=== PATIENT | male | born 1945 | race Caucasian/White ===

== ENCOUNTER 2022-10-25 01:24 | Day surgery (SDC) | payer MEDICARE, OTHER, SELFPAY ==
[2022-10-13 14:52] VITALS: BMI 27.3
--- NOTE | 2022-10-22 15:42 | PM.HPGS ---
History of Present Illness History of Present Illness Consent: Risks, benefits, and alternatives have been discussed and questions answered. Patient agrees to proceed with procedure. Chief complaint: hx of colon polyps Narrative: Jaylon Jean-Baptiste is a 76 year old male With a history of polyps. 2 polyps were removed at the time of his last colonoscopy 5 years ago. Review of Systems Review of Systems: All systems reviewed & are unremarkable except as noted in HPI and below PMFSH Family History Family History Sibling Family history of hypercholesterolemia Social History Social History Smoking status: Former smoker Tobacco type: cigarettes Smoking end date: 03/28/75 Substance use type: does not use Living arrangements: with family Spiritual care concerns: No Meds Home Medications and Allergies Home Medications Medication Instructions Recorded Confirmed Type dutasteride 0.5 mg capsule 0.5 mg PO DAILY 10/25/22 10/25/22 History Allergies Allergy/AdvReac Type Severity Reaction Status Date / Time No Known Allergies Allergy Unverified 10/25/22 09:50 Exam Const: General: alert Orientation/consciousness: patient oriented x3 Resp: Auscultation: clear to auscultation bilaterally Cardio: Rhythm: regular rhythm GI: GI Palp: Yes Soft to palpation and No Tenderness to palpation present (GI) Neuro: General: patient oriented x3 Assessment and Plan Assessment and plan (1) Colon cancer screening: Code(s): Z12.11 - Encounter for screening for malignant neoplasm of colon Status: Acute Assessment and Plan: Colonoscopy with possible biopsy or polypectomy or cautery or injection of substances.
[2022-10-25 09:51] VITALS: BP 112/57; PULSE 61; RESP 18; TEMP 36.2; O2SAT 98
[2022-10-25] MEDS: LACTATED RINGERS 1,000 ML 150 ML IV CONT (09:54)
--- NOTE | 2022-10-25 10:01 | WPDANESEPPF ---
Anes - Initial Pre Proc Eval Procedure: Operation Date: 10/25/22 11:00 Proposed Procedures p Colonoscopy - Jackson Jeffries MD Date/Time: 10/25/22 10:01 Surgeon: Jackson Jeffries MD Pre Op Diagnosis: hx of colon polyps Patient Data Age: 76 Gender: M Height: 1.75 m Weight: 81.1 kg Last Vital Signs Temp 97.1 F L 10/25/22 09:51 Pulse 61 10/25/22 09:51 Resp 18 10/25/22 09:51 BP 112/57 L 10/25/22 09:51 Pulse Ox 98 10/25/22 09:51 O2 Del Method Room Air 10/25/22 09:51 Allergies Allergy/AdvReac Type Severity Reaction Status Date / Time No Known Allergies Allergy Unverified 10/25/22 09:50 Home Medications Medication Instructions Recorded Confirmed Type dutasteride 0.5 mg capsule 0.5 mg PO DAILY 10/25/22 10/25/22 History Patient hx anesthesia problems: none Family hx anesthesia problems: none Results Review: All pre-operative results and documents have been reviewed as part of the pre-operative evaluation. [facility] Family History Family History Sibling Family history of hypercholesterolemia Social History Social History Smoking status: Former smoker Tobacco type: cigarettes Smoking end date: 03/28/75 Substance use type: does not use Living arrangements: with family Spiritual care concerns: No Anes - Eval Final PreProcedure Day of Procedure 10/25/22 10:01 Patient weight: normal Heart: regular rate and rhythm Lungs: clear to auscultation Airway: Mallampati scale class II Neurological: alert and oriented Last oral intake: >/= 8 hours ASA classification: II Emergent: no Anesthetic plan: proceed Anesthesia type and monitoring: general GIVS and standard monitoring Results Review: All pre-operative results and documents have been reviewed as part of the pre-operative evaluation. Informed Consent: The patient's anesthetic plan and its attendant risks and benefits were discussed with the patient/family/POA. Questions were solicited and answers provided to the satisfaction of the patient/family/POA.
[2022-10-25 10:33] VITALS: BP 95/57; PULSE 59; RESP 25; O2SAT 96
[2022-10-25 10:43] VITALS: BP 108/66; PULSE 53; RESP 14; O2SAT 98
== END 2022-10-25 11:10 | disposition home or self-care (01) ==
PROVIDERS: Visit Provider Internal Medicine Gastroenterology
PROC: 0DJD8ZZ Inspection of Lower Intestinal Tract, Via Natural or Artificial Opening Endoscopic (ICD-10-PCS; CPT 45378; principal; 2022-10-25 11:00)
DX: Z12.11 Encounter for screening for malignant neoplasm of colon (principal); D12.8 Benign neoplasm of rectum; K57.30 Diverticulosis of large intestine without perforation or abscess without bleeding; Z87.891 Personal history of nicotine dependence
CPT/HCPCS: 45385; 88305; J2704; J7120

== ENCOUNTER → 2023-02-25 10:50 | Outpatient (CLI) | payer MEDICARE, OTHER, SELFPAY ==
--- NOTE | ~2023-02-25 | US_ITS ---
US scrotum doppler INDICATION: Swollen right testicle TECHNIQUE: Testicular sonogram utilizing grayscale and color Doppler FINDINGS: The testes are normal in size and appearance. No focal lesions are seen. The right testes measures 4.5 x 3 x 2.8 cm centimeters, and the left testis measures 4.2 x 2.4 x 3.4 cm cm. There is n ormal vascular flow to both testes. There is a 6 mm right epididymal cysts. There is a large right and small left hydroceles. IMPRESSION: 1. Bilateral hydroceles, right greater than left. Reviewed, dictated and finalized at location B. [employer]
== END ==
PROVIDERS: PCP Family Medicine; Visit Provider Family Medicine
DX: N50.89 Other specified disorders of the male genital organs (principal); N43.3 Hydrocele, unspecified
CPT/HCPCS: 76870; 93976

== ENCOUNTER 2023-11-04 13:44 | Outpatient (CLI) | payer MEDICARE, OTHER, SELFPAY ==
--- NOTE | ~2023-11-04 | XR_ITS ---
XR knee RT 3V 11/04/2023 14:05 Indication: Right knee pain Procedure: 3 views right knee Comparison: No prior studies for comparison. Findings: There is moderate-severe tricompartment osteoarthritis, most advanced in the medial compart ment. No fracture or traumatic malalignment. No significant joint effusion. Impression: 1: Moderate-severe tricompartment osteoarthritis of the right knee. Reviewed, dictated and finalized at location B. Impression: 1: Moderate-severe tricompartment osteoarthritis of the right knee.
--- NOTE | ~2023-11-04 | US_ITS ---
EXAMINATION:US venous doppler LE RT INDICATION:Right lower extremity edema TECHNIQUE: Multiple grayscale, color flow and Doppler images of the right lower extremity deep venous systems were obtained and reviewed. COMPARISON:No prior studies for comparison. FINDINGS: The common femoral, superficial femoral and popliteal veins demonstrate normal respiratory variation, augmentation and compressibility. Color flow is also seen within the posterior tibial, pe roneal, greater saphenous and profunda veins. IMPRESSION: 1: No lower extremity deep venous thrombosis. Reviewed, dictated and finalized at location B.
== END 2023-11-04 13:45 | disposition home or self-care (01) ==
LOC: ANHIMG 13:52
PROVIDERS: Visit Provider Family Medicine
DX: R60.0 Localized edema (principal); M17.11 Unilateral primary osteoarthritis, right knee
CPT/HCPCS: 73562; 93971